=== PATIENT | female | born 1985 | race Two or more races ===

== ENCOUNTER 2021-04-26 10:45 | Emergency (ER) | payer OTHER, SELFPAY ==
[2021-04-26 12:00] VITALS: BP 105/76; PULSE 78; RESP 22; TEMP 35.6; O2SAT 99
--- NOTE | 2021-04-26 12:57 | ED.URI ---
HPI - URI/Sore Throat General Chief Complaint: Upper Respiratory Infection Stated Complaint: headache,cough,fever Time Seen by Provider: 04/26/21 12:19 Source: patient and RN notes reviewed Mode of arrival: ambulatory Limitations: no limitations History of Present Illness HPI Narrative: Patient presents today complaining of 3-day history of fever up to 102, body aches, headache, cough, fatigue, bilateral ear pain, and nasal congestion. She has been taking DayQuil, NyQuil, and TheraFlu with mild relief. She has been vaccinated against COVID-19. MD elicited complaint: fever, cough and nasal congestion Related Data Home Medications Medication Instructions Recorded Confirmed ergocalciferol (vitamin D2) tablet PO 04/26/21 folic acid 1 mg PO DAILY 04/26/21 04/26/21 Allergies Allergy/AdvReac Type Severity Reaction Status Date / Time avocado Allergy Unknown Verified 04/26/21 12:54 banana Allergy Unknown Verified 04/26/21 12:54 cat dander Allergy Unknown Verified 04/26/21 12:54 dog dander Allergy Unknown Verified 04/26/21 12:54 grass pollen Allergy Unknown Verified 04/26/21 12:54 melon Allergy Unknown Verified 04/26/21 12:54 tree and shrub pollen Allergy Unknown Verified 04/26/21 12:54 Review of Systems Review of Systems: CONSTITUTIONAL: Denies chills, or sweats.+ Body aches, fatigue, fever EYES: Denies visual changes, redness, or discharge. ENT: Denies rhinorrhea, sore throat. + Congestion, bilateral ear pain CARDIOVASCULAR: Denies chest pain, palpitations, or edema. RESPIRATORY: Denies dyspnea.+ Cough GASTROINTESTINAL: Denies abdominal pain, nausea, vomiting, or diarrhea. GENITOURINARY: Denies dysuria or hematuria. SKIN: Denies rash, itching, or wounds. MUSCULOSKELETAL: Denies back pain, joint pain, or myalgia. NEUROLOGIC: Denies numbness, tingling, or weakness.+ Headache PSYCH: Denies depression or anxiety. PMFSH Comments At time of signature, I have reviewed and agree with nursing past medical, surgical, social and family history unless otherwise noted. Please see nursing chart for further information. There is no relevant family history pertinent to the presenting complaint Exam Narrative: GENERAL: Ill-appearing, well-nourished, and in no acute distress. HEAD: Normocephalic, atraumatic. EYES: EOMI. No redness or drainage. Conjunctivae normal. ENT: Mucous membranes pink and moist. Nares clear. No rhinorrhea. TMs normal bilaterally. Throat normal. Uvula midline. NECK: Normal AROM. Supple. No lymphadenopathy. CHEST: No respiratory distress. Clear to auscultation. HEART: Regular rate and rhythm. No murmur appreciated. Normal peripheral pulses. EXTREMITIES: Normal range of motion. No edema. SKIN: Warm, dry, no rash. Capillary refill normal. Normal skin turgor. NEURO: No focal deficits. Alert and oriented x3. Gait steady. PSYCH: Normal affect. No signs of depression or anxiety. Course Course Level of Care: Express Care Visit Vital Signs Vital signs: Vital Signs Temperature 96.1 F L 04/26/21 12:00 Pulse Rate 78 04/26/21 12:00 Respiratory Rate 22 H 04/26/21 12:00 Blood Pressure 105/76 04/26/21 12:00 Pulse Oximetry 99 04/26/21 12:00 Temperature 96.1 F L 04/26/21 12:00 Pulse Rate 78 04/26/21 12:00 Respiratory Rate 22 H 04/26/21 12:00 Blood Pressure 105/76 04/26/21 12:00 Pulse Oximetry 99 04/26/21 12:00 Reviewed MDM - URI/Sore Throat Differential Diagnosis Differential diagnosis: Likely upper respiratory infection, viral infection, influenza and other (COVID-19) Lab Data Attestation: I reviewed the patient's lab results. Labs: Lab Results 04/26/21 Range/Units 12:15 POC SARS CoV-2 Ag Positive (Negative) Critical Care Time Critical Care Time Critical Care Time: No Discharge Plan Discharge Clinical Impression: COVID-19 Patient Disposition: Home, Self-Care Condition: Stable Instructions: COVID-19 (Coronavirus Disease 2019) (ED
== END 2021-04-26 13:19 | disposition home or self-care (01) ==
PROVIDERS: Emergency Provider Nurse Practitioner
DX: U07.1 COVID-19 (principal)
CPT/HCPCS: 87426; 99203; C9803; G0463